=== PATIENT | male | born 1980 | race Caucasian/White ===

== ENCOUNTER 2017-11-30 08:59 | Emergency (ER) | payer OTHER ==
[~2017-11-30] VITALS: Ht 180.3 cm; Wt 93.5 kg
[~2017-11-30 08:59] MED LIST: PROT40TA PO; TIRO13CA PO; TIRO150C PO
[2017-11-30 09:02] VITALS: BP 124/86; PULSE 75; RESP 16; TEMP 97.8; O2SAT 99
[2017-11-30] MEDS ORDERED: ONDANSETRON HCL 4 MG/2 ML VIAL IVP ONE (09:15)
[2017-11-30] MEDS ORDERED: KETOROLAC TROMETHAMINE 30 MG/ML (IVP) VIAL IVP ONE (09:15)
[2017-11-30] MEDS ORDERED: SODIUM CHLORIDE 0.9% FLUSH 10 ML FLUSH IV FLUSH PRN (09:15)
[2017-11-30] MEDS ORDERED: DICYCLOMINE HCL 20 MG/2 ML VIAL IM ONE (09:15)
--- NOTE | 2017-11-30 09:15 | PD ---
HPI Chief Complaint: GI Complaint Time Seen by Provider: 09:12 Travel History International Travel<30 days: No Contact w/Intl Traveler<30days: No Traveled to known affect area: No History of Present Illness HPI Patient complains of about 2 weeks of left upper quadrant pain, rates it 5 out of 10, sometimes associated with nausea. No associated factors such as fever, rash, neck stiffness, chest pain, back pain, diarrhea. Patient denies any alleviating or aggravating factors. Patient states he has allergies to sulfa multiple different types of IV dye Past medical history surgical history significant for hypothyroidism inguinal hernia repair 2003 appendectomy cholecystectomy GERD occasional history of alcohol use and no tobacco use PFSH Past Medical History Diminished Hearing: No GERD: Yes Thyroid Disease: Yes (HYPO ) Past Surgical History Abdominal Surgery: Yes (INGUINAL HERNIA 2003) Appendectomy: Yes Cholecystectomy: Yes Social History Alcohol Use: Yes (DAILY) Tobacco Use: No (QUIT) Substance Use: No Allergies-Medications (Allergen,Severity, Reaction): Coded Allergies: Sulfa (Sulfonamide Antibiotics) (Unverified Allergy, Severe, HIVES, ) diatrizoate meglumine (Unverified Allergy, Severe, HIVES, 11/30/17) gadobenic acid (Unverified Allergy, Severe, HIVES, 11/30/17) gadodiamide (Unverified Allergy, Severe, HIVES, 11/30/17) gadoteridol (Unverified Allergy, Severe, HIVES, 11/30/17) iodixanol (Unverified Allergy, Severe, HIVES, 11/30/17) iohexol (Unverified Allergy, Severe, HIVES, 11/30/17) Reported Meds & Prescriptions Reported Meds & Active Scripts Active Protonix (Pantoprazole Sodium) 40 Mg Tab 40 Mg PO DAILY Reported Tirosint (Levothyroxine Sodium) 150 Mcg Cap 150 Mcg PO DAILY Tirosint (Levothyroxine Sodium) 13 Mcg Cap 13 Mcg PO DAILY Review of Systems General / Constitutional: No: Fever Eyes: No: Visual changes HENT: No: Headaches Cardiovascular: No: Chest Pain or Discomfort Respiratory: No: Shortness of Breath Gastrointestinal: Positive: Nausea, Vomiting, Abdominal Pain Genitourinary: Positive: Flank Pain Musculoskeletal: No: Pain Skin: No Rash Neurologic: No: Weakness Psychiatric: No: Depression Endocrine: No: Polydipsia Hematologic/Lymphatic: No: Easy Bruising Physical Exam Narrative GENERAL: SKIN: Warm and dry. HEAD: Atraumatic. Normocephalic. EYES: Pupils equal and round. No scleral icterus. No injection or drainage. ENT: No nasal bleeding or discharge. Mucous membranes pink and moist. NECK: Trachea midline. No JVD. CARDIOVASCULAR: Regular rate and rhythm. RESPIRATORY: No accessory muscle use. Clear to auscultation. Breath sounds equal bilaterally. GASTROINTESTINAL: Abdomen soft, non-tender, nondistended. MUSCULOSKELETAL: Extremities without clubbing, cyanosis, or edema. No obvious deformities. NEUROLOGICAL: Awake and alert. No obvious cranial nerve deficits. Motor grossly within normal limits. Five out of 5 muscle strength in the arms and legs. Normal speech. PSYCHIATRIC: Appropriate mood and affect; insight and judgment normal. Data Data Last Documented VS Vital Signs Date Time Temp Pulse Resp B/P (MAP) Pulse Ox O2 Delivery O2 Flow Rate FiO2 11/30/17 09:37 98 Room Air 11/30/17 09:02 97.8 75 16 124/86 (99) Orders Orders Complete Blood Count With Diff (11/30/17 09:12) Comprehensive Metabolic Panel (11/30/17 09:12) Lipase (11/30/17 09:12) Ct Abd/Pel W/O Iv Contrast (11/30/17 09:12) Iv Access Insert/Monitor (11/30/17 09:12) Ecg Monitoring (11/30/17 09:12) Oximetry (11/30/17 09:12) NPO (11/30/17 09:12) Ondansetron Inj (Zofran Inj) (11/30/17 09:15) Sodium Chloride 0.9% Flush (Ns Flush) (11/30/17 09:15) Dicyclomine Inj (Bentyl Inj) (11/30/17 09:15) Ketorolac Inj (Toradol Inj) (11/30/17 09:15) Ct Brain W/O Iv Contrast(Rout) (11/30/17 09:32) Labs Laboratory Tests Test 11/30/17 09:31 White Blood Count 5.0 TH/MM3 Red Blood Count 4.83 MIL/MM3 Hemoglobin 14.5 GM/DL Hematocrit 43.6 % Mean Corpuscular Volume 90.2 FL Mean Corpuscular Hemoglobin 30.0 PG Mean Corpuscular Hemoglobin Concent 33.3 % Red Cell Distribution Width 11.8 % Platelet Count 235 TH/MM3 Mean Platelet Volume 8.9 FL Neutrophils (%) (Auto) 59.5 % Lymphocytes (%) (Auto) 27.9 % Monocytes (%) (Auto) 9.2 % Eosinophils (%) (Auto) 1.2 % Basophils (%) (Auto) 2.2 % Neutrophils # (Auto) 2.9 TH/MM3 Lymphocytes # (Auto) 1.4 TH/MM3 Monocytes # (Auto) 0.5 TH/MM3 Eosinophils # (Auto) 0.1 TH/MM3 Basophils # (Auto) 0.1 TH/MM3 CBC Comment DIFF FINAL Differential Comment Blood Urea Nitrogen 15 MG/DL Creatinine 1.10 MG/DL Random Glucose 104 MG/DL Total Protein 7.9 GM/DL Albumin 4.2 GM/DL Calcium Level 8.8 MG/DL Alkaline Phosphatase 76 U/L Aspartate Amino Transf (AST/SGOT) 15 U/L Alanine Aminotransferase (ALT/SGPT) 27 U/L Total Bilirubin 0.8 MG/DL Sodium Level 139 MEQ/L Potassium Level 4.0 MEQ/L Chloride Level 106 MEQ/L Carbon Dioxide Level 28.8 MEQ/L Anion Gap 4 MEQ/L Estimat Glomerular Filtration Rate 75 ML/MIN Lipase 97 U/L [facility] Medical Decision Making Medical Screen Exam Complete: Yes Emergency Medical Condition: Yes Medical Record Reviewed: Yes Differential Diagnosis Hepatitis versus pancreatitis versus kidney stones versus colitis versus splenic injury Narrative Course CBC shows no leukocytosis, no anemia, normal platelet count and no evidence of any left shift. Normal lipase normal liver function normal electrolytes and normal kidney function. CT head negative for intracranial hemorrhage, brain mass or sinusitis. CT abdomen and pelvis shows left sided intestinal inflammatory findings, diverticulosis without diverticulitis. Patient will be treated for colitis with Flagyl and Cipro as well as Ultram pain medication. Patient will be referred to GI for further evaluation and to ensure this is not some sort of inflammatory colitis such as Crohn's or ulcerative colitis. Diagnosis Primary Impression: Colitis Referrals: Jann Sellers MD FOR FURTHER EVALUATION OF YOUR CAT SCAN FINDING TO ENSURE IS NOT CHRON'S Patient Instructions: General Instructions, Infectious Colitis (ED) Scripts Ondansetron Odt (Zofran Odt) 4 Mg Tab 4 MG SL Q6HR Y for Nausea/Vomiting, #15 TAB 0 Refills Prov: Ruslan Torres MD 11/30/17 Tramadol (Ultram) 50 Mg Tab 50 MG PO Q6H Y for PAIN, #14 TAB 0 Refills Prov: Ruslan Torres MD 11/30/17 Metronidazole (Flagyl) 500 Mg Tab 500 MG PO TID for Infection for 7 Days, TAB 0 Refills Prov: Ruslan Torres MD 11/30/17 Ciprofloxacin (Cipro) 500 Mg Tab 500 MG PO BID for Infection for 7 Days, #14 TAB 0 Refills Prov: Ruslan Torres MD 11/30/17 Disposition: 01 DISCHARGE HOME Condition: Stable Ruslan Torres MD Nov 30, 2017 09:15
[2017-11-30 09:37] VITALS: O2SAT 98
[2017-11-30 09:39] LABS: AUTOMATED NEUTROPHIL # 2.9 TH/MM3 (1.8-7.7); BASOPHIL # 0.1 TH/MM3 (0-0.2); BASOPHIL % 2.2 % (0.0-2.0); EOSINOPHIL # 0.1 TH/MM3 (0-0.4); EOSINOPHIL % 1.2 % (0.0-4.0); HEMATOCRIT 43.6 % (39.0-51.0); HEMOGLOBIN 14.5 GM/DL (13.0-17.0); LYMPH % 27.9 % (9.0-44.0); LYMPHOCYTE # 1.4 TH/MM3 (1.0-4.8); MEAN CELL VOLUME 90.2 FL (80.0-100.0); MEAN CORPUSCULAR HGB CONC 33.3 % (32.0-36.0); MEAN PLATELET VOLUME 8.9 FL (7.0-11.0); MONO % 9.2 % (0.0-8.0); MONOCYTE # 0.5 TH/MM3 (0-0.9); NEUT % 59.5 % (16.0-70.0); PLATELET COUNT 235 TH/MM3 (150-450); RED BLOOD COUNT 4.83 MIL/MM3 (4.50-5.90); RED CELL DISTRIBUTION WIDTH 11.8 % (11.6-17.2)
--- NOTE | 2017-11-30 09:47 | RADRPT ---
EXAM DATE/TIME: 11/30/2017 09:35 [facility] COMPARISON: No previous studies available for comparison. INDICATIONS : Headache for one week. RADIATION DOSE: 64.54 CTDIvol (mGy) MEDICAL HISTORY : Hypothyroidism. Gastroesophageal reflux disease. SURGICAL HISTORY : None. ENCOUNTER: Initial ACUITY: 1 week PAIN SCALE: 4/10 LOCATION: Bilateral frontal TECHNIQUE: Multiple contiguous axial images were obtained of the head. Using automated exposure control and adj ustment of the mA and/or kV according to patient size, radiation dose was kept as low as reasonably a chievable to obtain optimal diagnostic quality images. DICOM format image data is available electro nically for review and comparison. FINDINGS: CEREBRUM: The ventricles are normal for age. No evidence of midline shift, mass lesion, hemorrhage or acute in farction. No extra-axial fluid collections are seen. POSTERIOR FOSSA: The cerebellum and brainstem are intact. The 4th ventricle is midline. The cerebellopontine angle i s unremarkable. EXTRACRANIAL: The visualized portion of the orbits is intact. SKULL: The calvaria is intact. No evidence of skull fracture. CONCLUSION: Normal examination. Anil Brown MD on November 30, 2017 at 9:44 Board Certified Radiologist. This report was verified electronically.
[2017-11-30 09:55] LABS: ALBUMIN 4.2 GM/DL (3.4-5.0); BICARBONATE 28.8 MEQ/L (21.0-32.0); CALCIUM 8.8 MG/DL (8.5-10.1); GLUCOSE,RANDOM 104 MG/DL (74-106)
[2017-11-30 09:58] LABS: ALT (GPT) 27 U/L (12-78); AST (GOT) 15 U/L (15-37); GLOMERULAR FILTRATION RATE 75 ML/MIN (>89)
[2017-11-30 10:00] LABS: TOTAL BILIRUBIN ADULT 0.8 MG/DL (0.2-1.0); TOTAL PROTEIN 7.9 GM/DL (6.4-8.2)
[2017-11-30 10:01] LABS: ALKALINE PHOSPHATASE 76 U/L (45-117)
[2017-11-30 10:03] LABS: CHLORIDE 106 MEQ/L (98-107); SODIUM (NA) 139 MEQ/L (136-145)
[2017-11-30 10:04] LABS: BLOOD UREA NITROGEN 15 MG/DL (7-18)
--- NOTE | 2017-11-30 10:13 | RADRPT ---
EXAM DATE/TIME: 11/30/2017 09:41 [facility] COMPARISON: CT ABDOMEN & PELVIS W/O CONTRAST, September 09, 2016, 14:05. INDICATIONS : Left upper quadrant pain, nausea. ORAL CONTRAST: No oral contrast ingested. RADIATION DOSE: 16.04 CTDIvol (mGy) MEDICAL HISTORY : Gastroesophageal reflux disease. Hypothyroidism. SURGICAL HISTORY : Appendectomy. Cholecystectomy.Inguinal hernia repair. ENCOUNTER: Initial ACUITY: 1 week PAIN SCALE: 4/10 LOCATION: Left upper quadrant TECHNIQUE: Volumetric scanning of the abdomen and pelvis was performed. Using automated exposure control and ad justment of the mA and/or kV according to patient size, radiation dose was kept as low as reasonably achievable to obtain optimal diagnostic quality images. DICOM format image data is available electro nically for review and comparison. FINDINGS: LOWER LUNGS: The visualized lower lungs are clear. LIVER: Homogeneous density without lesion for noncontrast technique. There is no dilation of the biliary tr ee. Cholecystectomy. SPLEEN: Normal size without lesion. PANCREAS: Within normal limits. KIDNEYS: Normal in size and shape. There is no mass, stone, or hydronephrosis. ADRENAL GLANDS: Within normal limits. VASCULAR: There is no aortic aneurysm. BOWEL/MESENTERY: No dilated loops of small or large bowel. A few scattered diverticula are present in the sigmoid and left colon. There is a small area of mild fatty induration of the mesentery and left lower quadrant , best seen on axial image #104. No free fluid or intraperitoneal gas. ABDOMINAL WALL: Within normal limits. RETROPERITONEUM: There is no lymphadenopathy. BLADDER: No wall thickening or mass. REPRODUCTIVE: Within normal limits. INGUINAL: There is no lymphadenopathy or hernia. MUSCULOSKELETAL: Within normal limits for patient age. CONCLUSION: 1. Minimal induration of the mesenteric fat in the left lower quadrant suggests an inflammatory proce ss. 2. Some mild left and sigmoid colon diverticula without radiographic evidence of diverticulitis. 3. No calcified renal stones or hydronephrosis. Marcel Butcher MD on November 30, 2017 at 10:07 Board Certified Radiologist. This report was verified electronically.
[2017-11-30] MEDS ORDERED: CIPR-9 PO (10:21)
[2017-11-30] MEDS ORDERED: METR-1 PO (10:21)
[2017-11-30] MEDS ORDERED: ZOFR4TAB3 SL (10:21)
[2017-11-30] MEDS ORDERED: TRAM50 PO (10:21)
[2017-11-30] MEDS ORDERED: LEVOFLOXACIN 500 MG TAB PO ONE (10:30)
[2017-11-30] MEDS ORDERED: metroNIDAZOLE 500 MG TAB PO ONE (10:30)
== END 2017-11-30 11:11 | disposition home or self-care (01) ==
LOC: PHED 08:59
DX: K52.9 Noninfective gastroenteritis and colitis, unspecified (principal); K21.9 Gastro-esophageal reflux disease without esophagitis; E03.9 Hypothyroidism, unspecified; Z79.899 Other long term (current) drug therapy; Z88.2 Allergy status to sulfonamides; Z88.8 Allergy status to other drugs, medicaments and biological substances
CPT/HCPCS: 70450; 74176; 80053; 83690; 85025; 96372; 96374; 96375; 99284; J0500; J1885; J2405